=== PATIENT | female | born 2000 | race Caucasian/White ===

== ENCOUNTER 2018-08-19 17:21 | Emergency (ER) | payer BC, OTHER ==
[~2018-08-19] VITALS: Ht 157.5 cm; Wt 63.5 kg
[2018-08-19] MEDS ORDERED: ACETAMINOPHEN 325 MG TABLET PO STA (19:42)
[2018-08-19] MEDS ORDERED: ONDANSETRON 4 MG (ZOFRAN) ORAL DISSOLVE TAB SL STA (19:42)
[2018-08-19] MEDS ORDERED: ONDA8TAB9 PO (20:07)
--- NOTE | 2018-08-19 20:08 | ED General ---
General Chief Complaint: Trauma-Non Activation Stated Complaint: FELL AT HOME FELL DOWN STAIRS Nursing Triage Note: AMB TO ROOM REPORT DOG PUSHED DOOR OPEN CAUSING HER TO FALL C/O PAIN IN LEG LEG. History of Present Illness Date Seen by Provider: Aug 19, 2018 Time Seen by Provider: 18:50 Initial Comments 17-year-old female presents for head injury and fall yesterday. Her 100 pound dog jumped onto the screen door making it forcefully hit the right side of her head. She then fell down approximately 3 to 4 concrete steps. She denies loss of consciousness or directly striking her head on the steps. Since then she has been having some dizziness, mild tunnel vision, nausea and headache. She denies previous history of concussion. She does wear glasses and had a night exam approximately 6 months ago. She reports mild photophobia and difficulty with concentration. Timing/Duration: 12-24 Hours Severity: Mild Associated Systoms: Headaches; No Loss of Appetite; Nausea/Vomiting; No Seizure , No Syncope, No Weakness Allergies and Home Medications Allergies Coded Allergies: Penicillins (Verified Allergy, Unknown, 08/19/18) latex (Verified Allergy, Unknown, 08/19/18) Home Medications Ondansetron 8 Mg Tab.rapdis, 8 MG PO Q6H Prescribed by: GEORGIE RUFFIN on 08/19/182006 Patient Home Medication List Home Medication List Reviewed: Yes Review of Systems Review of Systems Constitutional: see HPI, dizziness Psychiatric/Neurological: See HPI, Headache All Other Systems Reviewed Negative Unless Noted: Yes Past Qdenama-Fyprqb-Shapau Hx Past Med/Social Hx: Reviewed Nursing Past Med/Soc Hx Patient Social History Alcohol Use: Occasionally Uses Recreational Drug Use: Yes Drug of Choice: POT Smoking Status: Former Smoker Recent Foreign Travel: No Contact w/Someone Who Travel: No Recent Infectious Disease Expo: No Past Medical History Surgeries: No Respiratory: No Cardiac: No Neurological: No Genitourinary: No Gastrointestinal: No Musculoskeletal: No Endocrine: No HEENT: No Cancer: No Psychosocial: No Integumentary: No Physical Exam Vital Signs Vital Signs - First Documented 08/19/18 18:40 Temp 98.0 Pulse 98 Resp 18 B/P (MAP) 139/88 O2 Delivery Room Air Capillary Refill : Height, Weight, BMI Height: 5'2.00" Weight: 140lbs. oz. 63.117730cd; 21.09 BMI Method: General Appearance: No Apparent Distress, WD/WN, Other (head normocephalic with no trauma, areas of tenderness or swelling) Eyes: Bilateral Eye Normal Inspection, Bilateral Eye PERRL, Bilateral Eye EOMI , Bilateral Eye Other (ophthalmoscopic exam within normal limits) HEENT: PERRL/EOMI, TMs Normal, Normal ENT Inspection, Pharynx Normal, Moist Mucous Membranes Neck: Full Range of Motion, Normal Inspection, Non Tender, Supple Respiratory: Chest Non Tender, Lungs Clear, Normal Breath Sounds Cardiovascular: Regular Rate, Rhythm, Normal Peripheral Pulses Gastrointestinal: Normal Bowel Sounds, Non Tender, Soft Back: Normal Inspection, No CVA Tenderness, No Vertebral Tenderness Extremity: Normal Capillary Refill, Normal Inspection, Normal Range of Motion, No Pedal Edema Neurologic/Psychiatric: Alert, Oriented x3, No Motor/Sensory Deficits, Normal Mood/Affect, upholstery bundler II-XII Norm as Tested (grossly intact) Skin: Normal Color, Warm/Dry Comments GCS 15; negative Romberg. Patient able to perform rapid alternating movements, [id number], run her heel down her walker, recall of 3 words was correct immediately, 5 min, 20 min and 30 min. She performed all tasks without difficulty or balance disturbance. Ambulated with steady heel toe gait. Progress/Results/Core Measures Suspected Sepsis SIRS Temperature:98.0 Pulse: Respiratory Rate: Blood Pressure / Mean: Results/Orders My Orders Orders - GEORGIE RUFFIN Ondansetron Oral Dissolve Tab (Zofran (08/19/18 19:42) Acetaminophen Tablet/Caplet (Tylenol T (08/19/18 19:42) Vital Signs/I&O 08/19/18 18:40 Temp 98.0 Pulse 98 Resp 18 B/P (MAP) 139/88 O2 Delivery Room Air Capillary Refill : Progress Note : Time: 18:50 Progress Note Patient seen and evaluated, discussed the results of her exam, she does not meet criteria for CT scan of the head. Risks versus benefits of CT scanning were reviewed with her, she agreed with this plan. We will give Tylenol 650 mg for headache and Zofran 8 mg by mouth for nausea. 1929 discharge instructions and return precautions reviewed with the patient. All questions answered. Departure Impression Primary Impression: Concussion Qualified Codes: S06.0X0A - Concussion without loss of consciousness, initial encounter Disposition: HOME, SELF-CARE Condition: Improved Departure-Patient Inst. Decision time for Depature: 19:50 Referrals: NO,LOCAL PHYSICIAN (PCP) Primary Care Physician Patient Instructions: Minor Head Injury (DC) Add. Discharge Instructions: Brain rest: Limit use of phone, tablets, TV, computers. Keep feet on ground at all times. No driving while dizzy. You may take Tylenol 650 mg every 6-8 hours as needed for headache or pain. You may take Zofran every 6-8 hours as needed for nausea and vomiting. Diet as tolerated. Follow up at [facility] or [facility] urgent care next to the hospital, if symptoms are not improving or worsen. Return to emergency department for headache that is not improving with Tylenol, nausea and vomiting that is persistent, seizure activity, vision changes, changes in mental status or new concerns. All discharge instructions reviewed with patient and/or family. Voiced understanding. Scripts Ondansetron (Zofran Odt) 8 Mg Tab.rapdis 8 MG PO Q6H for 8 Days, #8 TAB 0 Refills Prov: GEORGIE RUFFIN 08/19/18 Work/School Note: Work Release Form Date Seen in the Emergency Department: Aug 19, 2018 Return to Work: Aug 22, 2018 Restrictions: No Restrictions GEORGIE RUFFIN Aug 19, 2018 20:08
== END 2018-08-19 20:22 | disposition home or self-care (01) ==
LOC: ER 17:23
DX: S06.0X0A Concussion without loss of consciousness, initial encounter (principal); F12.10 Cannabis abuse, uncomplicated; Z88.0 Allergy status to penicillin; Z91.040 Latex allergy status; Z87.891 Personal history of nicotine dependence; W10.8XXA Fall (on) (from) other stairs and steps, initial encounter
CPT/HCPCS: 99282